=== PATIENT | male | born 1935 | race Asian ===

== ENCOUNTER 2024-03-10 22:22 | Inpatient (IN) | payer OTHER, BC ==
[~2024-03-10] VITALS: Ht 180.3 cm; Wt 84.9 kg
[2024-03-10 22:24] VITALS: BP 140/70; PULSE 90; RESP 16; TEMP 103.1; O2SAT 98
[2024-03-10] MEDS ORDERED: ACETAMINOPHEN EXTRA STRENGTH 500 MG TAB ONE (22:29)
[2024-03-10] MEDS: ACETAMINOPHEN EXTRA STRENGTH 500 MG TAB PO ONE (22:39)
[2024-03-10] MEDS: NACL 0.9% 1,000 ML IV ONE (22:47)
[2024-03-10 22:48] LABS: BASOPHILS # (AUTO) 0.1 K/uL (0.00-0.22); BASOPHILS % (AUTO) 0.8 % (0.0-2.0); EOSINOPHILS % (AUTO) 0.3 % (0.0-4.0); HEMATOCRIT 30.2 % (36-52); LYMPHOCYTES # (AUTO) 0.2 K/uL (2.0-11.5); MEAN CORPUSCULAR HEMOGLOBIN 30 pg (27-31); MEAN CORPUSCULAR HGB CONC 33 g/dL (33-37); MEAN CORPUSCULAR VOLUME 89.8 fL (80-94); MONOCYTES # (AUTO) 0.8 K/uL (0.8-1.0); MONOCYTES % (AUTO) 7.8 % (1.7-9.3); NEUTROPHILS # (AUTO) 9.6 K/uL (1.8-7.7); NEUTROPHILS % (AUTO) 89.1 % (42.2-75.2); RED BLOOD CELL COUNT(AUTO) 3.37 MIL/uL (4.20-6.10); RED CELL DISTRIBUTION WIDTH 16.5 % (11.6-13.7); WHITE BLOOD COUNT (AUTO) 10.8 K/uL (4.8-10.8)
[2024-03-10 22:53] LABS: PLATELET COUNT (AUTO) 72 K/uL (140-450)
[2024-03-10 22:54] LABS: APPEARANCE,URINE CLEAR (CLEAR); BILIRUBIN,URINE NEGATIVE (NEGATIVE); BLOOD, URINE 1+ (NEGATIVE); COLOR,URINE YELLOW (YELLOW); LEUKOCYTE ESTERASE ,URINE NEGATIVE (NEGATIVE); NITRITE, URINE NEGATIVE (NEGATIVE); PROTEIN,URINE 1+ (NEGATIVE); UGLUCOSE NEGATIVE (NEGATIVE); UROBILINOGEN,URINE 0.2 EU/dL (0.2 - 1)
[2024-03-10 23:04] LABS: ANION GAP 18.9 (8-16); CALCIUM 8.3 mg/dL (8.5-10.1); CARBON DIOXIDE 17.8 mmol/L (21-32); CHLORIDE 98 mmol/L (98-107); CREATININE 2.2 mg/dL (0.6-1.3); GLUCOSE 140 mg/dL (74-106); POTASSIUM 3.7 mmol/L (3.5-5.1); SODIUM SERUM 131 mmol/L (136-145); UREA NITROGEN, BLOOD 26 mg/dL (7-18)
[2024-03-10] MEDS ORDERED: AZITHROMYCIN 500 MG INJ VIAL IV ONE (23:05)
[2024-03-10] MEDS ORDERED: cefTRIAXone 1,000 MG VIAL ONE (23:05)
[2024-03-10 23:10] LABS: BILIRUBIN,DIRECT 0.8 mg/dL (0.0-0.3); TOTAL BILIRUBIN 1.6 mg/dL (0.0-1.0); TOTAL PROTEIN, SERUM 5.7 g/dL (6.4-8.2)
[2024-03-10 23:10] LABS: BACTERIA,URINE >30 (MANY) /HPF (None Seen); RBC,URINE 0-5 /HPF (0-5); SQUAMOUS EPITHELIAL CELL,UR 4-10 (MOD) /LPF (0-3 (FEW)); WBC,URINE 0-5 /HPF (0-5)
[2024-03-10 23:11] LABS: MUCUS,URINE 1+ /LPF (None Seen)
[2024-03-10 23:16] LABS: LACTIC ACID 4.5 mmol/L (0.4-2.0)
[2024-03-10] MEDS: AZITHROMYCIN 500 MG in DEXTROSE 5% 250 ML IV ONE (23:26)
[2024-03-11] VITALS (18 sets, daily range): BP systolic 91–118; BP diastolic 48–59; PULSE 41–80; RESP 22–30; TEMP 98.3–99.4; O2SAT 94–98
[2024-03-11] MEDS: NACL 0.9% 1,000 ML IV ONE (00:37)
[2024-03-11] MEDS ORDERED: ACETAMINOPHEN 325 MG TAB PO PRN (00:40)
[2024-03-11] MEDS ORDERED: ONDANSETRON 4 MG/2 ML VIAL IVP PRN (00:40)
[2024-03-11] MEDS ORDERED: NOREPINEPHRINE 4 MG/4 ML VIAL IV ONE ×2 (00:41→06:38)
[2024-03-11] MEDS: NOREPINEPHRINE 4 MG in DEXTROSE 5% 250 ML IV ONE (00:56)
[2024-03-11] MEDS: NACL 0.9% 1,000 ML IV SCH (01:37)
[2024-03-11] MEDS: PIPERACILLIN/TAZOBACTAM 3.375 GM in DEXTROSE 5% 50 ML IV SCH (05:04)
[2024-03-11] MEDS ORDERED: PIPERACILLIN/TAZOBACTAM 3.375 GM VIAL IV ONE ×2 (05:08)
[2024-03-11] MEDS ORDERED: APIX2.5 PO (05:33)
[2024-03-11] MEDS ORDERED: FURO-570 PO (05:33)
[2024-03-11] MEDS ORDERED: AMLO2.5T PO (05:33)
[2024-03-11] MEDS ORDERED: RAMI1.253 PO (05:33)
[2024-03-11] MEDS ORDERED: ROSU40TA PO (05:33)
[2024-03-11 09:26] LABS: FLU A ANTIGEN negative (NEGATIVE); FLU B ANTIGEN negative (NEGATIVE)
[2024-03-11] MEDS ORDERED: RAMI1.2528 PO (10:25)
[2024-03-11] MEDS: NOREPINEPHRINE 4 MG in DEXTROSE 5% 250 ML IV PRN (13:51)
[2024-03-11 14:18] LABS: BASOPHILS % (AUTO) 0.3 % (0.0-2.0); EOSINOPHILS % (AUTO) 0.4 % (0.0-4.0); HEMATOCRIT 28.1 % (36-52); HEMOGLOBIN 9.1 g/dL (12.0-18.0); LYMPHOCYTES # (AUTO) 0.2 K/uL (2.0-11.5); LYMPHOCYTES % (AUTO) 2.3 % (20.5-51.1); MEAN CORPUSCULAR HEMOGLOBIN 29 pg (27-31); MEAN CORPUSCULAR HGB CONC 32 g/dL (33-37); MEAN CORPUSCULAR VOLUME 88.5 fL (80-94); MONOCYTES # (AUTO) 0.6 K/uL (0.8-1.0); MONOCYTES % (AUTO) 8.4 % (1.7-9.3); NEUTROPHILS # (AUTO) 5.9 K/uL (1.8-7.7); NEUTROPHILS % (AUTO) 88.6 % (42.2-75.2); PLATELET COUNT (AUTO) 67 K/uL (140-450); RED BLOOD CELL COUNT(AUTO) 3.18 MIL/uL (4.20-6.10); RED CELL DISTRIBUTION WIDTH 16.8 % (11.6-13.7); WHITE BLOOD COUNT (AUTO) 6.6 K/uL (4.8-10.8)
[2024-03-11 14:32] LABS: ANION GAP 15.9 (8-16); CALCIUM 7.6 mg/dL (8.5-10.1); CARBON DIOXIDE 19.3 mmol/L (21-32); CHLORIDE 102 mmol/L (98-107); CREATININE 1.8 mg/dL (0.6-1.3); GLUCOSE 159 mg/dL (74-106); POTASSIUM 3.2 mmol/L (3.5-5.1); SODIUM SERUM 134 mmol/L (136-145); UREA NITROGEN, BLOOD 24 mg/dL (7-18)
[2024-03-11] MEDS: HYDROCORTISONE NA SUCC 100 MG/2 ML VIAL IV SCH (14:38)
[2024-03-11] MEDS: TAMSULOSIN 0.4 MG CAP PO SCH (14:38)
[2024-03-11] MEDS: NACL 0.9% 500 ML IV SCH (14:38)
[2024-03-11] MEDS: POTASSIUM CHLORIDE 40 MEQ, LIDOCAINE 1% 25 MG in NACL 0.9% 250 ML IV ONE (18:26)
[2024-03-11] MEDS: APIXABAN 2.5 MG TAB PO SCH (20:23)
[2024-03-11] MEDS: MIDODRINE 5 MG TAB PO SCH (20:36)
[2024-03-11] MEDS: DOPamine 400 MG/D5W PREMIX 250 ML IV PRN (23:46)
[2024-03-12] VITALS (26 sets, daily range): BP systolic 88–131; BP diastolic 46–90; PULSE 22–58; RESP 16–28; TEMP 96.8–98.2; O2SAT 90–100
[2024-03-12 05:17] LABS: EOSINOPHILS % (AUTO) 0.1 % (0.0-4.0); HEMATOCRIT 31.5 % (36-52); HEMOGLOBIN 10.6 g/dL (12.0-18.0); LYMPHOCYTES # (AUTO) 0.2 K/uL (2.0-11.5); LYMPHOCYTES % (AUTO) 1.8 % (20.5-51.1); MEAN CORPUSCULAR HEMOGLOBIN 30 pg (27-31); MEAN CORPUSCULAR HGB CONC 34 g/dL (33-37); MEAN CORPUSCULAR VOLUME 88.7 fL (80-94); MONOCYTES # (AUTO) 0.5 K/uL (0.8-1.0); MONOCYTES % (AUTO) 5.4 % (1.7-9.3); NEUTROPHILS # (AUTO) 8.9 K/uL (1.8-7.7); NEUTROPHILS % (AUTO) 92.7 % (42.2-75.2); PLATELET COUNT (AUTO) 67 K/uL (140-450); RED BLOOD CELL COUNT(AUTO) 3.55 MIL/uL (4.20-6.10); RED CELL DISTRIBUTION WIDTH 16.4 % (11.6-13.7); WHITE BLOOD COUNT (AUTO) 9.6 K/uL (4.8-10.8)
[2024-03-12 05:37] LABS: ANION GAP 16.3 (8-16); CARBON DIOXIDE 17.3 mmol/L (21-32); CHLORIDE 103 mmol/L (98-107); CREATININE 1.8 mg/dL (0.6-1.3); GLUCOSE 185 mg/dL (74-106); POTASSIUM 3.6 mmol/L (3.5-5.1); SODIUM SERUM 133 mmol/L (136-145); UREA NITROGEN, BLOOD 27 mg/dL (7-18)
[2024-03-12] MEDS: TAMSULOSIN 0.4 MG CAP PO SCH (08:30)
[2024-03-12] MEDS: ATORVASTATIN 80 MG TAB PO SCH (08:31)
[2024-03-12] MEDS ORDERED: NON-FORMULARY ITEM (Rosuvastatin Calcium* (Crestor*) 1 TAB) PO SCH (09:00)
[2024-03-12] MEDS: PANTOPRAZOLE 40 MG INJ VIAL IVP SCH (13:09)
[2024-03-13] VITALS (26 sets, daily range): BP systolic 89–130; BP diastolic 47–67; PULSE 45–68; RESP 15–23; TEMP 96.8–98.7; O2SAT 94–100
[2024-03-13 04:55] LABS: BASOPHILS % (AUTO) 0.2 % (0.0-2.0); EOSINOPHILS # (AUTO) 0.1 K/uL (0-0.4); EOSINOPHILS % (AUTO) 2.4 % (0.0-4.0); HEMATOCRIT 28.8 % (36-52); HEMOGLOBIN 9.7 g/dL (12.0-18.0); LYMPHOCYTES # (AUTO) 0.1 K/uL (2.0-11.5); LYMPHOCYTES % (AUTO) 2.3 % (20.5-51.1); MEAN CORPUSCULAR HEMOGLOBIN 30 pg (27-31); MEAN CORPUSCULAR HGB CONC 34 g/dL (33-37); MEAN CORPUSCULAR VOLUME 88.3 fL (80-94); MONOCYTES # (AUTO) 0.5 K/uL (0.8-1.0); MONOCYTES % (AUTO) 7.7 % (1.7-9.3); NEUTROPHILS # (AUTO) 5.2 K/uL (1.8-7.7); NEUTROPHILS % (AUTO) 87.4 % (42.2-75.2); PLATELET COUNT (AUTO) 62 K/uL (140-450); RED BLOOD CELL COUNT(AUTO) 3.26 MIL/uL (4.20-6.10); RED CELL DISTRIBUTION WIDTH 16.6 % (11.6-13.7)
[2024-03-13 05:07] LABS: ALANINE AMINOTRANSFERASE 10 U/L (12-78); ALKALINE PHOSPHATASE 81 U/L (50-136); ANION GAP 14.6 (8-16); ASPARTATE AMINOTRANSFERASE 9 U/L (15-37); CALCIUM 7.8 mg/dL (8.5-10.1); CARBON DIOXIDE 18.6 mmol/L (21-32); CHLORIDE 104 mmol/L (98-107); CREATININE 1.6 mg/dL (0.6-1.3); GLUCOSE 141 mg/dL (74-106); POTASSIUM 3.2 mmol/L (3.5-5.1); SODIUM SERUM 134 mmol/L (136-145); TOTAL BILIRUBIN 0.8 mg/dL (0.0-1.0); TOTAL PROTEIN, SERUM 4.5 g/dL (6.4-8.2); UREA NITROGEN, BLOOD 25 mg/dL (7-18)
[2024-03-13] MEDS: POTASSIUM CHLORIDE 10 MEQ TABER PO SCH (10:13)
[2024-03-14] VITALS (20 sets, daily range): BP systolic 88–131; BP diastolic 39–71; PULSE 44–61; RESP 15–26; TEMP 97–98.3; O2SAT 94–100
[2024-03-14 04:25] LABS: BASOPHILS # (AUTO) 0.1 K/uL (0.00-0.22); BASOPHILS % (AUTO) 1.1 % (0.0-2.0); EOSINOPHILS # (AUTO) 0.1 K/uL (0-0.4); HEMATOCRIT 28.7 % (36-52); HEMOGLOBIN 9.7 g/dL (12.0-18.0); LYMPHOCYTES # (AUTO) 0.4 K/uL (2.0-11.5); LYMPHOCYTES % (AUTO) 7.5 % (20.5-51.1); MEAN CORPUSCULAR HEMOGLOBIN 30 pg (27-31); MEAN CORPUSCULAR HGB CONC 34 g/dL (33-37); MEAN CORPUSCULAR VOLUME 88.3 fL (80-94); MONOCYTES # (AUTO) 0.6 K/uL (0.8-1.0); MONOCYTES % (AUTO) 10.9 % (1.7-9.3); NEUTROPHILS % (AUTO) 78.5 % (42.2-75.2); PLATELET COUNT (AUTO) 62 K/uL (140-450); RED BLOOD CELL COUNT(AUTO) 3.25 MIL/uL (4.20-6.10); RED CELL DISTRIBUTION WIDTH 16.5 % (11.6-13.7); WHITE BLOOD COUNT (AUTO) 5.1 K/uL (4.8-10.8)
[2024-03-14 04:42] LABS: ALANINE AMINOTRANSFERASE 10 U/L (12-78); ALBUMIN 2.1 g/dL (3.4-5.0); ALKALINE PHOSPHATASE 98 U/L (50-136); ANION GAP 13.3 (8-16); ASPARTATE AMINOTRANSFERASE 10 U/L (15-37); CALCIUM 7.9 mg/dL (8.5-10.1); CARBON DIOXIDE 18.4 mmol/L (21-32); CHLORIDE 103 mmol/L (98-107); CREATININE 1.5 mg/dL (0.6-1.3); GLUCOSE 172 mg/dL (74-106); POTASSIUM 3.7 mmol/L (3.5-5.1); SODIUM SERUM 131 mmol/L (136-145); TOTAL BILIRUBIN 1.4 mg/dL (0.0-1.0); TOTAL PROTEIN, SERUM 4.6 g/dL (6.4-8.2); UREA NITROGEN, BLOOD 19 mg/dL (7-18)
[2024-03-15] VITALS (16 sets, daily range): BP systolic 95–114; BP diastolic 35–74; PULSE 44–56; RESP 14–23; TEMP 96.9–97.4; O2SAT 94–99
[2024-03-15 05:54] LABS: BASOPHILS % (AUTO) 0.4 % (0.0-2.0); EOSINOPHILS # (AUTO) 0.1 K/uL (0-0.4); EOSINOPHILS % (AUTO) 2.1 % (0.0-4.0); HEMOGLOBIN 9.8 g/dL (12.0-18.0); LYMPHOCYTES # (AUTO) 0.4 K/uL (2.0-11.5); LYMPHOCYTES % (AUTO) 7.4 % (20.5-51.1); MEAN CORPUSCULAR HEMOGLOBIN 30 pg (27-31); MEAN CORPUSCULAR HGB CONC 34 g/dL (33-37); MEAN CORPUSCULAR VOLUME 87.7 fL (80-94); MONOCYTES # (AUTO) 0.6 K/uL (0.8-1.0); NEUTROPHILS % (AUTO) 79.1 % (42.2-75.2); PLATELET COUNT (AUTO) 65 K/uL (140-450); RED BLOOD CELL COUNT(AUTO) 3.31 MIL/uL (4.20-6.10); RED CELL DISTRIBUTION WIDTH 16.4 % (11.6-13.7); WHITE BLOOD COUNT (AUTO) 5.1 K/uL (4.8-10.8)
[2024-03-15 06:13] LABS: ALANINE AMINOTRANSFERASE 14 U/L (12-78); ALKALINE PHOSPHATASE 100 U/L (50-136); ANION GAP 13.2 (8-16); ASPARTATE AMINOTRANSFERASE 10 U/L (15-37); CARBON DIOXIDE 20.3 mmol/L (21-32); CHLORIDE 102 mmol/L (98-107); CREATININE 1.3 mg/dL (0.6-1.3); GLUCOSE 143 mg/dL (74-106); POTASSIUM 3.5 mmol/L (3.5-5.1); SODIUM SERUM 132 mmol/L (136-145); TOTAL BILIRUBIN 1.2 mg/dL (0.0-1.0); TOTAL PROTEIN, SERUM 4.5 g/dL (6.4-8.2); UREA NITROGEN, BLOOD 20 mg/dL (7-18)
[2024-03-15] MEDS: SODIUM FERRIC GLUCONATE 125 MG in NACL 0.9% 100 ML IV SCH (11:38)
[2024-03-15] MEDS: MIDODRINE 5 MG TAB PO SCH (18:13)
[2024-03-16] VITALS (21 sets, daily range): BP systolic 95–128; BP diastolic 45–61; PULSE 46–60; RESP 13–23; TEMP 96.2–97.9; O2SAT 97–100
[2024-03-16 05:21] LABS: BASOPHILS % (AUTO) 0.7 % (0.0-2.0); EOSINOPHILS # (AUTO) 0.1 K/uL (0-0.4); EOSINOPHILS % (AUTO) 1.6 % (0.0-4.0); HEMATOCRIT 29.7 % (36-52); HEMOGLOBIN 10.1 g/dL (12.0-18.0); LYMPHOCYTES # (AUTO) 0.5 K/uL (2.0-11.5); LYMPHOCYTES % (AUTO) 8.1 % (20.5-51.1); MEAN CORPUSCULAR HEMOGLOBIN 30 pg (27-31); MEAN CORPUSCULAR HGB CONC 34 g/dL (33-37); MEAN CORPUSCULAR VOLUME 87.4 fL (80-94); MONOCYTES # (AUTO) 0.7 K/uL (0.8-1.0); MONOCYTES % (AUTO) 11.7 % (1.7-9.3); NEUTROPHILS # (AUTO) 4.5 K/uL (1.8-7.7); NEUTROPHILS % (AUTO) 77.9 % (42.2-75.2); PLATELET COUNT (AUTO) 45 K/uL (140-450); RED CELL DISTRIBUTION WIDTH 16.4 % (11.6-13.7); WHITE BLOOD COUNT (AUTO) 5.7 K/uL (4.8-10.8)
[2024-03-16 07:00] LABS: ALANINE AMINOTRANSFERASE 13 U/L (12-78); ALBUMIN 2.1 g/dL (3.4-5.0); ALKALINE PHOSPHATASE 104 U/L (50-136); ANION GAP 12.7 (8-16); ASPARTATE AMINOTRANSFERASE 7 U/L (15-37); CALCIUM 8.2 mg/dL (8.5-10.1); CARBON DIOXIDE 19.2 mmol/L (21-32); CHLORIDE 103 mmol/L (98-107); CREATININE 1.3 mg/dL (0.6-1.3); GLUCOSE 144 mg/dL (74-106); POTASSIUM 3.9 mmol/L (3.5-5.1); SODIUM SERUM 131 mmol/L (136-145); TOTAL BILIRUBIN 1.1 mg/dL (0.0-1.0); TOTAL PROTEIN, SERUM 4.7 g/dL (6.4-8.2); UREA NITROGEN, BLOOD 18 mg/dL (7-18)
[2024-03-16] MEDS: FUROSEMIDE 20 MG TAB PO SCH (13:29)
[2024-03-17] VITALS (20 sets, daily range): BP systolic 97–123; BP diastolic 46–62; PULSE 44–69; RESP 15–22; TEMP 96.4–98.3; O2SAT 92–100
[2024-03-17 06:36] LABS: BASOPHILS % (AUTO) 0.6 % (0.0-2.0); EOSINOPHILS # (AUTO) 0.1 K/uL (0-0.4); EOSINOPHILS % (AUTO) 1.6 % (0.0-4.0); HEMATOCRIT 27.4 % (36-52); HEMOGLOBIN 9.2 g/dL (12.0-18.0); LYMPHOCYTES # (AUTO) 0.5 K/uL (2.0-11.5); LYMPHOCYTES % (AUTO) 9.7 % (20.5-51.1); MEAN CORPUSCULAR HEMOGLOBIN 29 pg (27-31); MEAN CORPUSCULAR HGB CONC 34 g/dL (33-37); MEAN CORPUSCULAR VOLUME 87.7 fL (80-94); MONOCYTES # (AUTO) 0.6 K/uL (0.8-1.0); MONOCYTES % (AUTO) 11.4 % (1.7-9.3); NEUTROPHILS # (AUTO) 3.9 K/uL (1.8-7.7); NEUTROPHILS % (AUTO) 76.7 % (42.2-75.2); PLATELET COUNT (AUTO) 51 K/uL (140-450); RED BLOOD CELL COUNT(AUTO) 3.12 MIL/uL (4.20-6.10); RED CELL DISTRIBUTION WIDTH 16.7 % (11.6-13.7)
[2024-03-17 07:17] LABS: ALANINE AMINOTRANSFERASE 15 U/L (12-78); ALBUMIN 2.2 g/dL (3.4-5.0); ALKALINE PHOSPHATASE 112 U/L (50-136); ANION GAP 12.9 (8-16); ASPARTATE AMINOTRANSFERASE 11 U/L (15-37); CALCIUM 8.8 mg/dL (8.5-10.1); CARBON DIOXIDE 18.9 mmol/L (21-32); CHLORIDE 103 mmol/L (98-107); CREATININE 1.1 mg/dL (0.6-1.3); GLUCOSE 110 mg/dL (74-106); POTASSIUM 3.8 mmol/L (3.5-5.1); SODIUM SERUM 131 mmol/L (136-145); TOTAL BILIRUBIN 1.1 mg/dL (0.0-1.0); TOTAL PROTEIN, SERUM 4.5 g/dL (6.4-8.2); UREA NITROGEN, BLOOD 18 mg/dL (7-18)
[2024-03-17] MEDS: ALBUTEROL 0.083% 2.5 MG/3 ML NEBU INH PRN (11:10)
[2024-03-18] VITALS (8 sets, daily range): BP systolic 94–136; BP diastolic 47–60; PULSE 43–57; RESP 16–18; TEMP 96.4–99.2; O2SAT 97–100
[2024-03-18 07:22] LABS: BASOPHILS % (AUTO) 0.6 % (0.0-2.0); EOSINOPHILS # (AUTO) 0.1 K/uL (0-0.4); EOSINOPHILS % (AUTO) 1.3 % (0.0-4.0); HEMATOCRIT 27.3 % (36-52); HEMOGLOBIN 9.2 g/dL (12.0-18.0); LYMPHOCYTES # (AUTO) 0.3 K/uL (2.0-11.5); LYMPHOCYTES % (AUTO) 6.8 % (20.5-51.1); MEAN CORPUSCULAR HEMOGLOBIN 30 pg (27-31); MEAN CORPUSCULAR HGB CONC 34 g/dL (33-37); MEAN CORPUSCULAR VOLUME 88.7 fL (80-94); MONOCYTES # (AUTO) 0.5 K/uL (0.8-1.0); MONOCYTES % (AUTO) 10.4 % (1.7-9.3); NEUTROPHILS % (AUTO) 80.9 % (42.2-75.2); PLATELET COUNT (AUTO) 59 K/uL (140-450); RED BLOOD CELL COUNT(AUTO) 3.08 MIL/uL (4.20-6.10); RED CELL DISTRIBUTION WIDTH 16.7 % (11.6-13.7)
[2024-03-18 07:41] LABS: ALANINE AMINOTRANSFERASE 12 U/L (12-78); ALBUMIN 2.1 g/dL (3.4-5.0); ALKALINE PHOSPHATASE 100 U/L (50-136); ANION GAP 12.2 (8-16); ASPARTATE AMINOTRANSFERASE 11 U/L (15-37); CALCIUM 8.8 mg/dL (8.5-10.1); CARBON DIOXIDE 19.9 mmol/L (21-32); CHLORIDE 104 mmol/L (98-107); CREATININE 1.1 mg/dL (0.6-1.3); GLUCOSE 104 mg/dL (74-106); POTASSIUM 4.1 mmol/L (3.5-5.1); SODIUM SERUM 132 mmol/L (136-145); TOTAL BILIRUBIN 1.2 mg/dL (0.0-1.0); TOTAL PROTEIN, SERUM 4.5 g/dL (6.4-8.2); UREA NITROGEN, BLOOD 18 mg/dL (7-18)
[2024-03-18] MEDS ORDERED: TAMS0.4C96 PO (15:42)
[2024-03-18] MEDS ORDERED: FERR325E14 PO (15:42)
[2024-03-18] MEDS ORDERED: MIDO5TAB16 PO (15:42)
== END 2024-03-18 19:10 | DRG 871 ==
LOC: MED 22:22 → MMU 03-11 01:33 → MIC 03-11 05:32 → MTU 03-17 11:30
PROVIDERS: ADMIT Internal Medicine; ATTEND Internal Medicine
PROC: 02HV33Z Insertion of Infusion Device into Superior Vena Cava, Percutaneous Approach (ICD-10-PCS; principal; 2024-03-12)
DX: A41.9 Sepsis, unspecified organism (principal); I50.33 Acute on chronic diastolic (congestive) heart failure; R65.21 Severe sepsis with septic shock; J18.9 Pneumonia, unspecified organism; E44.0 Moderate protein-calorie malnutrition; N39.0 Urinary tract infection, site not specified; N17.9 Acute kidney failure, unspecified; I48.20 Chronic atrial fibrillation, unspecified; I11.0 Hypertensive heart disease with heart failure; N13.9 Obstructive and reflux uropathy, unspecified; Z20.822 Contact with and (suspected) exposure to COVID-19; D69.6 Thrombocytopenia, unspecified; D50.9 Iron deficiency anemia, unspecified; N40.0 Benign prostatic hyperplasia without lower urinary tract symptoms; E78.5 Hyperlipidemia, unspecified; Z79.899 Other long term (current) drug therapy; Z68.26 Body mass index [BMI] 26.0-26.9, adult
CPT/HCPCS: 36415; 71045; 76770; 80048; 80053; 80076; 81001; 83540; 83605; 85025; 87040; 87081; 87086; 93005; 94010; 94640; 96365; 96375; 97116; 97163-GP; 97530; 99291; J0456; J0696; J1265; J1720; J2001; J2470; J2543; J2916; J3480; J3490; J7030; J7060; J7613; Q0092

== ENCOUNTER 2024-04-02 09:07 | Inpatient (IN) | payer OTHER, BC ==
[~2024-04-02] VITALS: Ht 177.8 cm; Wt 89.0 kg
[~2024-04-02 09:07] MED LIST: APIX2.5 PO; FERR325E14 PO; MIDO5TAB16 PO; ROSU40TA PO; TAMS0.4C96 PO
[2024-04-02 09:10] VITALS: BP 81/44; PULSE 58; RESP 26; O2SAT 100
[2024-04-02 09:17] VITALS: BP 81/44; PULSE 55; RESP 28; TEMP 98.9; O2SAT 88
[2024-04-02] MEDS ORDERED: NOREPINEPHRINE 4 MG/4 ML VIAL IV ONE ×6 (09:31→18:55)
[2024-04-02] MEDS: NOREPINEPHRINE 4 MG in DEXTROSE 5% 250 ML IV ONE ×2 (09:39→13:32)
[2024-04-02 09:40] LABS: HEMATOCRIT 31.8 % (36-52); HEMOGLOBIN 10.5 g/dL (12.0-18.0); MEAN CORPUSCULAR HEMOGLOBIN 30 pg (27-31); MEAN CORPUSCULAR HGB CONC 33 g/dL (33-37); MEAN CORPUSCULAR VOLUME 92.4 fL (80-94); PLATELET COUNT (AUTO) 50 K/uL (140-450); RED BLOOD CELL COUNT(AUTO) 3.44 MIL/uL (4.20-6.10); RED CELL DISTRIBUTION WIDTH 20.6 % (11.6-13.7); WHITE BLOOD COUNT (AUTO) 7.8 K/uL (4.8-10.8)
[2024-04-02 09:48] LABS: ANION GAP 14.4 (8-16); CALCIUM 9.8 mg/dL (8.5-10.1); CARBON DIOXIDE 20.6 mmol/L (21-32); CHLORIDE 105 mmol/L (98-107); CREATININE 3.6 mg/dL (0.6-1.3); GLUCOSE 112 mg/dL (74-106); SODIUM SERUM 136 mmol/L (136-145); UREA NITROGEN, BLOOD 56 mg/dL (7-18)
[2024-04-02 09:56] LABS: ALANINE AMINOTRANSFERASE 44 U/L (12-78); ASPARTATE AMINOTRANSFERASE 40 U/L (15-37); BILIRUBIN,DIRECT 1.3 mg/dL (0.0-0.3); TOTAL BILIRUBIN 2.4 mg/dL (0.0-1.0); TOTAL PROTEIN, SERUM 4.5 g/dL (6.4-8.2)
[2024-04-02 10:00] LABS: LACTIC ACID 3.4 mmol/L (0.4-2.0)
[2024-04-02 10:03] LABS: EOSINOPHILS % (MANUAL) 1 % (0-4); LYMPHOCYTES % (MANUAL) 7 % (20-46); MONOCYTES % (MANUAL) 9 % (5-12)
[2024-04-02 10:04] LABS: INR 1.92 (0.8-1.2); PARTIAL THROMBOPLASTIN TIME 39.6 secs (22-35.6); PLATELET ESTIMATE DECREASED; PROTHROMBIN TIME 19.5 secs (10.8-13.4)
[2024-04-02 10:07] LABS: ANISOCYTOSIS 1+
[2024-04-02 10:08] LABS: ALKALINE PHOSPHATASE 151 U/L (50-136)
[2024-04-02 10:21] LABS: BLOOD GAS PH 7.483 (7.35-7.45)
[2024-04-02 10:22] LABS: BLOOD GAS BASE EXCESS 15.8 mmol/L (-2.0-2.0); BLOOD GAS PO2 345.5 mmHg (75-100)
[2024-04-02 10:24] LABS: BLOOD GAS PCO2 21.5 mmHg (35-45)
[2024-04-02 10:25] LABS: BLOOD GAS HCO3 15.8 mmol/L (22-26)
[2024-04-02] MEDS: VANCOMYCIN 1,000 MG in DEXTROSE 5% 250 ML IV ONE (11:20)
[2024-04-02] MEDS ORDERED: ACET-2619 PO (12:15)
[2024-04-02] MEDS ORDERED: SPIR50TA PO (12:15)
[2024-04-02] MEDS ORDERED: ASCO500T95 PO (12:15)
[2024-04-02] MEDS ORDERED: DUTA0.5S2 PO (12:15)
[2024-04-02] MEDS ORDERED: FURO-570 PO (12:19)
[2024-04-02] MEDS ORDERED: MAGN400S60 PO (12:19)
[2024-04-02] MEDS ORDERED: TAMS0.4C96 PO (12:19)
[2024-04-02] MEDS ORDERED: ZINC220C9 PO (12:19)
[2024-04-02] MEDS ORDERED: CEFEPIME 1,000 MG VIAL ONE (12:22)
[2024-04-02] MEDS ORDERED: VANCOMYCIN 1,000 MG VIAL ONE (12:23)
[2024-04-02] MEDS ORDERED: ONDANSETRON 4 MG/2 ML VIAL IM/IVP PRN (13:00)
[2024-04-02] MEDS ORDERED: HYDROcodone/APAP 7.5/325 MG 1 TAB PO PRN (13:00)
[2024-04-02] MEDS ORDERED: POTASSIUM CHLORIDE 10 MEQ TABER PO PRN (13:00)
[2024-04-02] MEDS ORDERED: ZOLPIDEM 5 MG TAB PO PRN (13:00)
[2024-04-02] MEDS: CEFEPIME 1,000 MG in DEXTROSE 5% 50 ML IV ONE (13:00)
[2024-04-02] MEDS ORDERED: guaiFENesin DM 200/20 MG-10 ML 10 ML UDC PO PRN (13:00)
[2024-04-02] MEDS ORDERED: DOCUSATE 100 MG/10 ML UDC PO PRN (13:10)
[2024-04-02] MEDS: NOREPINEPHRINE 4 MG in DEXTROSE 5% 250 ML IV PRN (15:06)
[2024-04-02] MEDS ORDERED: HYDROCORTISONE NA SUCC 100 MG/2 ML VIAL ONE (16:06)
[2024-04-02] MEDS: HYDROCORTISONE NA SUCC 100 MG/2 ML VIAL IV ONE (16:07)
[2024-04-02] MEDS ORDERED: VANCOMYCIN PER PHARMACY MC SCH (17:00)
[2024-04-02] MEDS: NACL 0.9% 500 ML IV SCH (17:05)
[2024-04-02 17:12] VITALS: PULSE 79; O2SAT 99
[2024-04-02] MEDS: NACL 0.9% 1,000 ML IV SCH (17:20)
[2024-04-02] MEDS ORDERED: PIPERACILLIN/TAZOBACTAM 3.375 GM in DEXTROSE 5% 50 ML IV SCH (18:00)
[2024-04-02 18:26] LABS: BLOOD GAS BASE EXCESS -8.3 mmol/L (-2.0-2.0); BLOOD GAS HCO3 15.3 mmol/L (22-26); BLOOD GAS PCO2 26.7 mmHg (35-45); BLOOD GAS PH 7.377 (7.35-7.45); BLOOD GAS PO2 137.7 mmHg (75-100)
[2024-04-02 18:27] LABS: BLOOD GAS O2 SAT% 98.8 % (92.0-98.5)
[2024-04-02] MEDS ORDERED: VASOPRESSIN 20 UNITS/ML VIAL ONE ×2 (18:52→18:56)
[2024-04-02] MEDS ORDERED: EPINEPHrine 1 MG/ML AMP ONE (19:03)
[2024-04-02] MEDS: VASOPRESSIN 40 UNITS in NACL 0.9% 250 ML IV PRN (19:08)
[2024-04-02] MEDS ORDERED: PHENYLEPHRINE 10 MG/ML VIAL ONE (19:19)
[2024-04-02] MEDS: PHENYLEPHRINE 50 MG in NACL 0.9% 250 ML IV ONE (20:19)
[2024-04-02] MEDS: PHENYLEPHRINE 10 MG/ML VIAL ONE (20:21)
[2024-04-02] MEDS: NOREPINEPHRINE 16 MG in DEXTROSE 5% 250 ML IV PRN (20:29)
[2024-04-02] MEDS: APIXABAN 2.5 MG TAB PO SCH (21:00)
[2024-04-02 21:16] LABS: LACTIC ACID 3.6 mmol/L (0.4-2.0)
[2024-04-02 21:30] VITALS: PULSE 96; RESP 19; O2SAT 100
[2024-04-02 22:00] VITALS: BP 90/60; PULSE 74; RESP 17; O2SAT 81
[2024-04-02 22:01] LABS: FLU A ANTIGEN negative (NEGATIVE); FLU B ANTIGEN NEGATIVE (NEGATIVE)
[2024-04-02] MEDS ORDERED: PIPERACILLIN/TAZOBACTAM 2.25 GM VIAL IV ONE (22:22)
[2024-04-02] MEDS: PIPERACILLIN/TAZOBACTAM 2.25 GM in DEXTROSE 5% 50 ML IV SCH (22:25)
[2024-04-02 23:00] VITALS: BP 84/56; PULSE 73; RESP 24; O2SAT 99
[2024-04-02] MEDS: NOREPINEPHRINE 4 MG/4 ML VIAL IV ONE (23:54)
[2024-04-03] VITALS (28 sets, daily range): BP systolic 57–137; BP diastolic 43–75; PULSE 74–91; RESP 18–35; TEMP 97–98.1; O2SAT 80–100
[2024-04-03] MEDS: NOREPINEPHRINE 4 MG/4 ML VIAL IV ONE ×2 (03:30→06:15)
[2024-04-03] MEDS ORDERED: PIPERACILLIN/TAZOBACTAM 2.25 GM VIAL IV ONE (05:32)
[2024-04-03 07:33] LABS: ALANINE AMINOTRANSFERASE 41 U/L (12-78); ALKALINE PHOSPHATASE 165 U/L (50-136); ANION GAP 20.1 (8-16); ASPARTATE AMINOTRANSFERASE 35 U/L (15-37); CALCIUM 9.2 mg/dL (8.5-10.1); CARBON DIOXIDE 14.3 mmol/L (21-32); CHLORIDE 101 mmol/L (98-107); CREATININE 3.8 mg/dL (0.6-1.3); GLUCOSE 231 mg/dL (74-106); POTASSIUM 4.4 mmol/L (3.5-5.1); SODIUM SERUM 131 mmol/L (136-145); TOTAL BILIRUBIN 2.7 mg/dL (0.0-1.0); TOTAL PROTEIN, SERUM 4.4 g/dL (6.4-8.2)
[2024-04-03 07:57] LABS: UREA NITROGEN, BLOOD 61 mg/dL (7-18)
[2024-04-03 08:09] LABS: BASOPHILS # (AUTO) 0.1 K/uL (0.00-0.22); BASOPHILS % (AUTO) 0.4 % (0.0-2.0); EOSINOPHILS % (AUTO) 0.2 % (0.0-4.0); HEMATOCRIT 32.8 % (36-52); HEMOGLOBIN 10.6 g/dL (12.0-18.0); LYMPHOCYTES % (AUTO) 6.8 % (20.5-51.1); MEAN CORPUSCULAR HEMOGLOBIN 30 pg (27-31); MEAN CORPUSCULAR HGB CONC 32 g/dL (33-37); MEAN CORPUSCULAR VOLUME 94.3 fL (80-94); MONOCYTES # (AUTO) 1.2 K/uL (0.8-1.0); MONOCYTES % (AUTO) 8.2 % (1.7-9.3); NEUTROPHILS # (AUTO) 12.5 K/uL (1.8-7.7); NEUTROPHILS % (AUTO) 84.4 % (42.2-75.2); PLATELET COUNT (AUTO) 55 K/uL (140-450); RED BLOOD CELL COUNT(AUTO) 3.48 MIL/uL (4.20-6.10); RED CELL DISTRIBUTION WIDTH 20.3 % (11.6-13.7); WHITE BLOOD COUNT (AUTO) 14.9 K/uL (4.8-10.8)
[2024-04-03] MEDS: SPIRONOLACTONE 50 MG TAB PO SCH (09:00)
[2024-04-03] MEDS: TAMSULOSIN 0.4 MG CAP PO SCH (09:00)
[2024-04-03] MEDS: PANTOPRAZOLE 40 MG TABEC PO SCH (09:00)
[2024-04-03] MEDS: VANCOMYCIN 1,000 MG in NACL 0.9% 250 ML IV SCH (09:44)
[2024-04-03] MEDS: ALBUTEROL SULFATE/IPRATROPIU 3 ML SOL IH PRN (13:40)
[2024-04-03] MEDS ORDERED: THERAHONEY GEL 42.5 GM TP PRN (16:35)
[2024-04-03] MEDS ORDERED: HYDRAGUARD CREAM TP PRN (16:35)
[2024-04-03] MEDS ORDERED: FOAM DRESSING TP PRN (16:35)
[2024-04-03] MEDS: ALBUTEROL SULFATE/IPRATROPIU 3 ML SOL IH SCH (19:37)
[2024-04-04] VITALS (27 sets, daily range): BP systolic 83–146; BP diastolic 43–77; PULSE 78–91; RESP 17–29; TEMP 97.4–98.1; O2SAT 86–100
[2024-04-04] MEDS: HYDRAGUARD CREAM TP SCH (01:06)
[2024-04-04 06:24] LABS: EOSINOPHILS # (AUTO) 0.1 K/uL (0-0.4); LYMPHOCYTES # (AUTO) 0.8 K/uL (2.0-11.5); NEUTROPHILS # (AUTO) 9.5 K/uL (1.8-7.7); WHITE BLOOD COUNT (AUTO) 11.4 K/uL (4.8-10.8)
[2024-04-04 06:37] LABS: ALANINE AMINOTRANSFERASE 49 U/L (12-78); ALBUMIN 1.9 g/dL (3.4-5.0); ALKALINE PHOSPHATASE 202 U/L (50-136); ANION GAP 20.4 (8-16); ASPARTATE AMINOTRANSFERASE 61 U/L (15-37); CALCIUM 8.8 mg/dL (8.5-10.1); CARBON DIOXIDE 13.9 mmol/L (21-32); CHLORIDE 100 mmol/L (98-107); CREATININE 3.9 mg/dL (0.6-1.3); GLUCOSE 162 mg/dL (74-106); POTASSIUM 4.3 mmol/L (3.5-5.1); SODIUM SERUM 130 mmol/L (136-145); TOTAL BILIRUBIN 3.7 mg/dL (0.0-1.0); TOTAL PROTEIN, SERUM 4.1 g/dL (6.4-8.2)
[2024-04-04 06:45] LABS: BASOPHILS % (AUTO) 0.3 % (0.0-2.0); EOSINOPHILS % (AUTO) 0.7 % (0.0-4.0); HEMOGLOBIN 10.4 g/dL (12.0-18.0); LYMPHOCYTES % (AUTO) 6.6 % (20.5-51.1); MEAN CORPUSCULAR HEMOGLOBIN 30 pg (27-31); MEAN CORPUSCULAR HGB CONC 33 g/dL (33-37); MEAN CORPUSCULAR VOLUME 92.3 fL (80-94); MONOCYTES % (AUTO) 8.9 % (1.7-9.3); NEUTROPHILS % (AUTO) 83.5 % (42.2-75.2); RED BLOOD CELL COUNT(AUTO) 3.47 MIL/uL (4.20-6.10); RED CELL DISTRIBUTION WIDTH 20.4 % (11.6-13.7)
[2024-04-04 07:11] LABS: PLATELET COUNT (AUTO) 40 K/uL (140-450)
[2024-04-04 07:54] LABS: UREA NITROGEN, BLOOD 67 mg/dL (7-18)
[2024-04-04] MEDS: PANTOPRAZOLE 40 MG INJ VIAL IVP SCH (09:37)
[2024-04-04] MEDS ORDERED: KCL 20 MEQ IN 100 mL PREMIX 200 ML IV PRN (11:20)
[2024-04-04] MEDS: FOAM DRESSING TP SCH (12:58)
[2024-04-04] MEDS: THERAHONEY GEL 42.5 GM TP SCH (12:58)
[2024-04-05] VITALS (30 sets, daily range): BP systolic 108–152; BP diastolic 55–95; PULSE 8–87; RESP 14–22; TEMP 96.9–98.3; O2SAT 95–100
[2024-04-05 06:42] LABS: BASOPHILS % (AUTO) 0.4 % (0.0-2.0); EOSINOPHILS # (AUTO) 0.1 K/uL (0-0.4); EOSINOPHILS % (AUTO) 0.9 % (0.0-4.0); HEMOGLOBIN 10.7 g/dL (12.0-18.0); LYMPHOCYTES # (AUTO) 0.7 K/uL (2.0-11.5); LYMPHOCYTES % (AUTO) 6.8 % (20.5-51.1); MEAN CORPUSCULAR HEMOGLOBIN 31 pg (27-31); MEAN CORPUSCULAR HGB CONC 33 g/dL (33-37); MEAN CORPUSCULAR VOLUME 91.7 fL (80-94); MONOCYTES # (AUTO) 0.8 K/uL (0.8-1.0); MONOCYTES % (AUTO) 7.9 % (1.7-9.3); NEUTROPHILS # (AUTO) 8.5 K/uL (1.8-7.7); PLATELET COUNT (AUTO) 28 K/uL (140-450); RED BLOOD CELL COUNT(AUTO) 3.49 MIL/uL (4.20-6.10); RED CELL DISTRIBUTION WIDTH 20.9 % (11.6-13.7); WHITE BLOOD COUNT (AUTO) 10.1 K/uL (4.8-10.8)
[2024-04-05 06:54] LABS: ANION GAP 20.3 (8-16); CALCIUM 8.3 mg/dL (8.5-10.1); CARBON DIOXIDE 12.7 mmol/L (21-32); CHLORIDE 100 mmol/L (98-107); CREATININE 3.7 mg/dL (0.6-1.3); GLUCOSE 158 mg/dL (74-106); SODIUM SERUM 129 mmol/L (136-145)
[2024-04-05 06:56] LABS: UREA NITROGEN, BLOOD 68 mg/dL (7-18)
[2024-04-05 07:01] LABS: ALANINE AMINOTRANSFERASE 53 U/L (12-78); ALBUMIN 1.7 g/dL (3.4-5.0); ALKALINE PHOSPHATASE 222 U/L (50-136); ASPARTATE AMINOTRANSFERASE 46 U/L (15-37); TOTAL BILIRUBIN 6.1 mg/dL (0.0-1.0)
[2024-04-05 07:04] LABS: MAGNESIUM 2.5 mg/dL (1.8-2.4); PHOSPHORUS 3.6 mg/dL (2.5-4.9)
[2024-04-05] MEDS: VANCOMYCIN 1,000 MG in DEXTROSE 5% 250 ML IV SCH (13:41)
[2024-04-05] MEDS: ALBUMIN HUMAN 25% 100 ML IV SCH (17:00)
[2024-04-05] MEDS ORDERED: PIPERACILLIN/TAZOBACTAM 2.25 GM VIAL IV ONE (20:12)
[2024-04-05] MEDS: BUMETANIDE 1 MG/4 ML VIAL IV SCH (20:23)
[2024-04-06] VITALS (31 sets, daily range): BP systolic 96–124; BP diastolic 52–77; PULSE 68–84; RESP 16–22; TEMP 97.1–97.6; O2SAT 90–100
[2024-04-06] MEDS ORDERED: PIPERACILLIN/TAZOBACTAM 2.25 GM VIAL IV ONE (05:02)
[2024-04-06 05:38] LABS: BASOPHILS % (AUTO) 0.2 % (0.0-2.0); EOSINOPHILS # (AUTO) 0.1 K/uL (0-0.4); EOSINOPHILS % (AUTO) 0.8 % (0.0-4.0); HEMOGLOBIN 9.6 g/dL (12.0-18.0); LYMPHOCYTES # (AUTO) 0.6 K/uL (2.0-11.5); LYMPHOCYTES % (AUTO) 5.9 % (20.5-51.1); MEAN CORPUSCULAR HEMOGLOBIN 31 pg (27-31); MEAN CORPUSCULAR HGB CONC 33 g/dL (33-37); MEAN CORPUSCULAR VOLUME 92.8 fL (80-94); MONOCYTES # (AUTO) 0.7 K/uL (0.8-1.0); MONOCYTES % (AUTO) 7.1 % (1.7-9.3); RED BLOOD CELL COUNT(AUTO) 3.13 MIL/uL (4.20-6.10); RED CELL DISTRIBUTION WIDTH 21.1 % (11.6-13.7); WHITE BLOOD COUNT (AUTO) 10.5 K/uL (4.8-10.8)
[2024-04-06 06:11] LABS: ALANINE AMINOTRANSFERASE 50 U/L (12-78); ALBUMIN 1.6 g/dL (3.4-5.0); ALKALINE PHOSPHATASE 213 U/L (50-136); ANION GAP 16.5 (8-16); ASPARTATE AMINOTRANSFERASE 35 U/L (15-37); CALCIUM 8.1 mg/dL (8.5-10.1); CARBON DIOXIDE 17.2 mmol/L (21-32); CHLORIDE 100 mmol/L (98-107); CREATININE 3.5 mg/dL (0.6-1.3); GLUCOSE 136 mg/dL (74-106); POTASSIUM 3.7 mmol/L (3.5-5.1); SODIUM SERUM 130 mmol/L (136-145); TOTAL BILIRUBIN 8.3 mg/dL (0.0-1.0); TOTAL PROTEIN, SERUM 3.6 g/dL (6.4-8.2)
[2024-04-06 06:14] LABS: MAGNESIUM 2.2 mg/dL (1.8-2.4); PHOSPHORUS 4.7 mg/dL (2.5-4.9)
[2024-04-06 06:26] LABS: UREA NITROGEN, BLOOD 62 mg/dL (7-18)
[2024-04-06 07:40] LABS: PLATELET COUNT (AUTO) 14 K/uL (140-450)
[2024-04-06 08:46] LABS: BLOOD GAS BASE EXCESS -10.4 mmol/L (-2.0-2.0); BLOOD GAS HCO3 13.1 mmol/L (22-26); BLOOD GAS O2 SAT% 98.3 % (92.0-98.5); BLOOD GAS PCO2 22.5 mmHg (35-45); BLOOD GAS PO2 119.3 mmHg (75-100)
[2024-04-06] MEDS: HYDROCORTISONE NA SUCC 100 MG/2 ML VIAL IV SCH (21:48)
[2024-04-06] MEDS: ALBUMIN HUMAN 25% 100 ML IV SCH (21:49)
[2024-04-07] VITALS (30 sets, daily range): BP systolic 100–157; BP diastolic 50–93; PULSE 70–87; RESP 13–32; TEMP 97–97.5; O2SAT 92–100
[2024-04-07] MEDS: NOREPINEPHRINE 4 MG/4 ML VIAL IV ONE ×2 (03:07→11:11)
[2024-04-07 06:15] LABS: BASOPHILS # (AUTO) 0.1 K/uL (0.00-0.22); BASOPHILS % (AUTO) 1.7 % (0.0-2.0); EOSINOPHILS % (AUTO) 0.1 % (0.0-4.0); HEMATOCRIT 25.1 % (36-52); HEMOGLOBIN 8.4 g/dL (12.0-18.0); LYMPHOCYTES # (AUTO) 0.4 K/uL (2.0-11.5); LYMPHOCYTES % (AUTO) 5.1 % (20.5-51.1); MEAN CORPUSCULAR HEMOGLOBIN 31 pg (27-31); MEAN CORPUSCULAR HGB CONC 34 g/dL (33-37); MEAN CORPUSCULAR VOLUME 92.4 fL (80-94); MONOCYTES # (AUTO) 0.1 K/uL (0.8-1.0); MONOCYTES % (AUTO) 1.2 % (1.7-9.3); NEUTROPHILS # (AUTO) 7.6 K/uL (1.8-7.7); NEUTROPHILS % (AUTO) 91.9 % (42.2-75.2); RED BLOOD CELL COUNT(AUTO) 2.71 MIL/uL (4.20-6.10); RED CELL DISTRIBUTION WIDTH 21.1 % (11.6-13.7); WHITE BLOOD COUNT (AUTO) 8.2 K/uL (4.8-10.8)
[2024-04-07 06:38] LABS: PLATELET COUNT (AUTO) 15 K/uL (140-450)
[2024-04-07 07:13] LABS: ALANINE AMINOTRANSFERASE 48 U/L (12-78); ALBUMIN 2.7 g/dL (3.4-5.0); ALKALINE PHOSPHATASE 186 U/L (50-136); ANION GAP 19.7 (8-16); ASPARTATE AMINOTRANSFERASE 37 U/L (15-37); CALCIUM 8.1 mg/dL (8.5-10.1); CARBON DIOXIDE 17.1 mmol/L (21-32); CHLORIDE 101 mmol/L (98-107); CREATININE 2.8 mg/dL (0.6-1.3); GLUCOSE 171 mg/dL (74-106); POTASSIUM 3.8 mmol/L (3.5-5.1); SODIUM SERUM 134 mmol/L (136-145); TOTAL BILIRUBIN 12.1 mg/dL (0.0-1.0); TOTAL PROTEIN, SERUM 4.2 g/dL (6.4-8.2); UREA NITROGEN, BLOOD 50 mg/dL (7-18)
[2024-04-07 07:45] LABS: MAGNESIUM 2.1 mg/dL (1.8-2.4); PHOSPHORUS 4.1 mg/dL (2.5-4.9)
[2024-04-07] MEDS: ACETAMINOPHEN 325 MG TAB PO PRN (09:05)
[2024-04-07] MEDS: ALBUMIN HUMAN 25% 100 ML IV SCH (11:30)
[2024-04-08] VITALS (25 sets, daily range): BP systolic 19–137; BP diastolic 33–95; PULSE 65–87; RESP 14–32; TEMP 91.7–99; O2SAT 82–100
[2024-04-08] MEDS ORDERED: PIPERACILLIN/TAZOBACTAM 2.25 GM VIAL IV ONE (04:09)
[2024-04-08] MEDS: PIPERACILLIN/TAZOBACTAM 2.25 GM in DEXTROSE 5% 50 ML IV SCH (04:18)
[2024-04-08 05:12] LABS: BLOOD GAS BASE EXCESS -10.3 mmol/L (-2.0-2.0); BLOOD GAS HCO3 14.2 mmol/L (22-26); BLOOD GAS PH 7.339 (7.35-7.45); BLOOD GAS PO2 66.3 mmHg (75-100)
[2024-04-08 05:50] LABS: BASOPHILS % (AUTO) 0.1 % (0.0-2.0); HEMATOCRIT 25.1 % (36-52); HEMOGLOBIN 8.1 g/dL (12.0-18.0); LYMPHOCYTES # (AUTO) 0.7 K/uL (2.0-11.5); LYMPHOCYTES % (AUTO) 6.2 % (20.5-51.1); MEAN CORPUSCULAR HEMOGLOBIN 31 pg (27-31); MEAN CORPUSCULAR HGB CONC 32 g/dL (33-37); MEAN CORPUSCULAR VOLUME 95.8 fL (80-94); MONOCYTES # (AUTO) 0.5 K/uL (0.8-1.0); NEUTROPHILS # (AUTO) 10.3 K/uL (1.8-7.7); NEUTROPHILS % (AUTO) 89.7 % (42.2-75.2); PLATELET COUNT (AUTO) 29 K/uL (140-450); RED BLOOD CELL COUNT(AUTO) 2.62 MIL/uL (4.20-6.10); RED CELL DISTRIBUTION WIDTH 21.1 % (11.6-13.7); WHITE BLOOD COUNT (AUTO) 11.5 K/uL (4.8-10.8)
[2024-04-08 06:13] LABS: ALANINE AMINOTRANSFERASE 58 U/L (12-78); ALBUMIN 3.4 g/dL (3.4-5.0); ALKALINE PHOSPHATASE 163 U/L (50-136); ANION GAP 22.9 (8-16); ASPARTATE AMINOTRANSFERASE 43 U/L (15-37); CALCIUM 8.1 mg/dL (8.5-10.1); CARBON DIOXIDE 17.5 mmol/L (21-32); CHLORIDE 99 mmol/L (98-107); CREATININE 2.6 mg/dL (0.6-1.3); GLUCOSE 186 mg/dL (74-106); POTASSIUM 4.4 mmol/L (3.5-5.1); SODIUM SERUM 135 mmol/L (136-145); TOTAL BILIRUBIN 12.5 mg/dL (0.0-1.0); TOTAL PROTEIN, SERUM 4.8 g/dL (6.4-8.2); UREA NITROGEN, BLOOD 47 mg/dL (7-18)
[2024-04-08 06:20] LABS: MAGNESIUM 2.2 mg/dL (1.8-2.4); PHOSPHORUS 5.2 mg/dL (2.5-4.9)
[2024-04-08] MEDS: DOCUSATE 100 MG/10 ML UDC GT PRN (12:55)
== END 2024-04-08 23:25 | DRG 871 ==
LOC: MED 09:07 → MTU 13:00 → MIC 19:30
PROVIDERS: ADMIT Student in an Organized Health Care Education/Training Program; ATTEND Student in an Organized Health Care Education/Training Program
PROC: 5A09357 Assistance with Respiratory Ventilation, Less than 24 Consecutive Hours, Continuous Positive Airway Pressure (ICD-10-PCS; 2024-04-02)
PROC: 02HV33Z Insertion of Infusion Device into Superior Vena Cava, Percutaneous Approach (ICD-10-PCS; 2024-04-05)
PROC: B548ZZA Ultrasonography of Superior Vena Cava, Guidance (ICD-10-PCS; 2024-04-05)
PROC: 5A1D70Z Performance of Urinary Filtration, Intermittent, Less than 6 Hours Per Day (ICD-10-PCS; 2024-04-05)
PROC: 02HV33Z Insertion of Infusion Device into Superior Vena Cava, Percutaneous Approach (ICD-10-PCS; principal; 2024-04-06)
PROC: 02PYX3Z Removal of Infusion Device from Great Vessel, External Approach (ICD-10-PCS; 2024-04-06)
PROC: 5A1D70Z Performance of Urinary Filtration, Intermittent, Less than 6 Hours Per Day (ICD-10-PCS; 2024-04-06)
PROC: 5A0935A Assistance with Respiratory Ventilation, Less than 24 Consecutive Hours, High Flow/Velocity Cannula (ICD-10-PCS; 2024-04-06)
PROC: 5A1D70Z Performance of Urinary Filtration, Intermittent, Less than 6 Hours Per Day (ICD-10-PCS; 2024-04-07)
PROC: 5A0935A Assistance with Respiratory Ventilation, Less than 24 Consecutive Hours, High Flow/Velocity Cannula (ICD-10-PCS; 2024-04-07)
PROC: 30233R1 Transfusion of Nonautologous Platelets into Peripheral Vein, Percutaneous Approach (ICD-10-PCS; 2024-04-07)
PROC: 5A1D70Z Performance of Urinary Filtration, Intermittent, Less than 6 Hours Per Day (ICD-10-PCS; 2024-04-08)
PROC: 5A0935A Assistance with Respiratory Ventilation, Less than 24 Consecutive Hours, High Flow/Velocity Cannula (ICD-10-PCS; 2024-04-08)
DX: A41.9 Sepsis, unspecified organism (principal); E43 Unspecified severe protein-calorie malnutrition; G93.41 Metabolic encephalopathy; J18.9 Pneumonia, unspecified organism; J96.01 Acute respiratory failure with hypoxia; R65.21 Severe sepsis with septic shock; N17.0 Acute kidney failure with tubular necrosis; I21.A1 Myocardial infarction type 2; I46.9 Cardiac arrest, cause unspecified; D64.9 Anemia, unspecified; D69.6 Thrombocytopenia, unspecified; E78.5 Hyperlipidemia, unspecified; Z20.822 Contact with and (suspected) exposure to COVID-19; I50.9 Heart failure, unspecified; I11.0 Hypertensive heart disease with heart failure; I48.91 Unspecified atrial fibrillation; Z79.899 Other long term (current) drug therapy; Z68.28 Body mass index [BMI] 28.0-28.9, adult
CPT/HCPCS: 36415; 36556; 36600; 71045; 76604; 80048; 80053; 80076; 80202; 82803; 83605; 83735; 83880; 84100; 84484; 85025; 85610; 85730; 86886; 86900; 86901; 87040; 87081; 90935; 92950; 93005; 94640; 96365; 96368; 99291; 99292; C1751; J0171; J0692; J1644; J1720; J2470; J2543; J3370; J3490; J7030; J7060; P9035; P9046; Q0092